=== PATIENT | female | born 1960 | race Caucasian/White ===

== ENCOUNTER 2021-05-01 23:18 | Emergency (ER) | payer BC ==
[2021-05-01] MEDS ORDERED: Sodium Chloride 0.9% 1,000 ML IV SCH (23:45)
--- NOTE | 2021-05-01 23:55 | EDM.PDOC ---
ED HPI GENERAL MEDICAL PROBLEM - General Chief Complaint: General Stated Complaint: OTONIEL FELIX Time Seen by Provider: 05/01/21 23:23 Source of Information: Reports: Patient, Family () History Limitations: Reports: No Limitations - History of Present Illness INITIAL COMMENTS - FREE TEXT/NARRATIVE: Mrs. Monroe is a very pleasant 60-year-old woman who is now brought to the ED by EMS after returning home from a [employer] party, during which time, from 17:30 to 19:00, she consumed 1.5 [employer] ice teas, then went upstairs to her bathroom, where she felt generalized weakness, therefore crumpled to the bathroom floor, and was too weak to get up. She states that she is uninjured. She then vomited a total of 4-6 times. She did not take any [id number] home remedies prior to EMS arrival. EMS reportedly gave the patient 4 mg of Zofran ODT and an additional 4 mg of IV Zofran. At this time, the patient states that her nausea is much better. No prior similar symptoms, and the patient states that she is familiar with [employer]. At triage, the patient's initial BP was found to be modestly elevated at 155/96, otherwise, she was hemodynamically stable, afebrile, saturating 97% on room air. She smells strongly of alcohol, and generally appears to be intoxicated, but appears to be relatively comfortable, in no acute distress. The patient states that she has had cold-like symptoms, including sinus congestion and a cough that developed this past 04/27/2021 or 04/28/2021. Otherwise, prior to ilnnea's event, the patient denies having a recent fever, chills, sore throat, ear pain, dyspnea, chest pain, palpitations, nausea, vomiting, constipation, diarrhea, abdominal pain, urinary symptoms, recent weight gain or weight loss, recent bloody bowel movements or black bowel movements, recent joint aches, headaches, or rashes. I reviewed the PMHx/PSHx/SocHx, which was reviewed with the patient by the RN. These patient's PCP is TOMMY Wilson. She has received 2 Pfizer COVID vaccinations, although no influenza vaccination this season. Headache Pain Score (Numeric/FACES): 3 - Related Data Allergies Allergy/AdvReac Type Severity Reaction Status Date / Time No Known Allergies Allergy Verified 05/01/21 23:39 Home Meds: Home Meds Hydroxychloroquine Sulfate 200 mg PO BID 05/01/21 [History] Meloxicam 7.5 mg PO DAILY 05/01/21 [History] Metoprolol Succinate 50 mg PO DAILY 05/01/21 [History] predniSONE [Prednisone] 5 mg PO DAILY 05/01/21 [History] Past Medical History HEENT History: Reports: Impaired Vision Cardiovascular History: Reports: Hypertension Musculoskeletal History: Reports: Fracture, Osteoarthritis - Infectious Disease History Infectious Disease History: Reports: Novel Coronavirus (dx'd 07/29/2020) - Past Surgical History GI Surgical History: Reports: Colonoscopy Social & Family History - Tobacco Use Tobacco Use Status *Q: Never Tobacco User - Caffeine Use Caffeine Use: Reports: Coffee - Recreational Drug Use Recreational Drug Use: No ED ROS GENERAL - Review of Systems Review Of Systems: Comprehensive ROS is negative, except as noted in HPI. ED EXAM, GENERAL - Physical Exam Exam: See Below Exam Limited By: No Limitations General Appearance: Alert, WD/WN, No Apparent Distress, Other (Strong smell of alcohol) Eye Exam: Bilateral Eye: EOMI, Normal Inspection, PERRL Ears: Normal External Exam, Hearing Grossly Normal Nose: Normal Inspection Throat/Mouth: Normal Inspection, Normal Lips, Normal Voice, No Airway Compromise Head: Atraumatic, Normocephalic Neck: Normal Inspection, Full Range of Motion Respiratory/Chest: No Respiratory Distress, Lungs Clear, Normal Breath Sounds, No Accessory Muscle Use. No: Decreased Breath Sounds, Crackles, Rhonchi, Wheezing, Prolonged Expiration Cardiovascular: Normal Peripheral Pulses, Regular Rate, Rhythm, No Edema, No Gallop, No JVD, No Murmur, No Rub Peripheral Pulses: 3+: Radial (L), Radial (R) GI/Abdominal: Normal Bowel Sounds, Soft, Non-Tender, No Organomegaly, No Distention, No Abnormal Bruit, No Mass Back Exam: Normal Inspection, Full Range of Motion, NT Extremities: Normal Inspection, Normal Range of Motion, No Pedal Edema, Normal Capillary Refill Neurological: Alert, Oriented, CN II-XII Intact, No Motor/Sensory Deficits, Other (Somewhat slurred speech, consistent with alcohol intoxication) Psychiatric: Normal Affect Skin Exam: Warm, Dry, Intact, Normal Color, No Rash #1 Interpretation EKG Date: 05/02/21 Time: 00:00 Rhythm: NSR Rate (Beats/Min): 90 [place]: Normal P-Wave: Present QRS: Normal ST-T: Normal QT: Prolonged (QTc 522 ms) Comparison: NA - No Prior EKG Course - Vital Signs Last Recorded V/S: Last Vital Signs Temp 35.8 C L 05/01/21 23:30 Pulse 93 05/01/21 23:30 Resp 20 05/01/21 23:30 BP 155/96 H 05/01/21 23:30 Pulse Ox 97 05/01/21 23:30 Orthostatic Blood Pressure [ 132/84 Standing] Orthostatic Blood Pressure [ 130/77 Supine] - Orders/Labs/Meds Orders: Active Orders 24 hr Category Date Time Status Orthostatic Vital Signs [RC] STAT Care 05/01/21 23:50 Active Chest 1V Frontal [CR] Stat Exams 05/01/21 23:50 Taken Sodium Chloride 0.9% [Normal Saline] 1,000 ml Med 05/01/21 23:45 Active IV ASDIRECTED Medication Orders Sodium Chloride (Normal Saline) 1,000 mls @ 150 mls/hr IV ASDIRECTED ROCHELLE Last Admin: 05/02/21 00:13 Dose: 150 mls/hr Documented by: SHERRILL Labs: Laboratory Tests 05/01/21 05/01/21 05/02/21 Range/Units 23:33 23:33 00:15 WBC 6.01 (3.98-10.04) K/mm3 RBC 4.27 (3.98-5.22) M/mm3 Hgb 13.7 (11.2-15.7) gm/dl Hct 40.8 (34.1-44.9) % MCV 95.6 H (79.4-94.8) fl MCH 32.1 (25.6-32.2) pg MCHC 33.6 (32.2-35.5) g/dl RDW Std Deviation 43.3 (36.4-46.3) fL Plt Count 186 (182-369) K/mm3 MPV 10.7 (9.4-12.3) fl Neut % (Auto) 52.5 (34.0-71.1) % Lymph % (Auto) 29.5 (19.3-51.7) % Rab[place] % (Auto) 14.3 H (4.7-12.5) % Eos % (Auto) 1.8 (0.7-5.8) Baso % (Auto) 1.2 (0.1-1.2) % Neut # (Auto) 3.16 (1.56-6.13) K/mm3 Lymph # (Auto) 1.77 (1.18-3.74) K/mm3 Rab[place] # (Auto) 0.86 H (0.24-0.36) K/mm3 Eos # (Auto) 0.11 (0.04-0.36) K/mm3 Baso # (Auto) 0.07 (0.01-0.08) K/mm3 Sodium 143 (136-145) mEq/L Potassium 4.3 (3.5-5.1) mEq/L Chloride 105 (98-107) mEq/L Carbon Dioxide 26 (21-32) mEq/L Anion Gap 16.3 H (5-15) BUN 20 H (7-18) mg/dL Creatinine 1.0 (0.55-1.02) mg/dL Est Cr Clr Drug Dosing 46.27 mL/min Estimated GFR (MDRD) 57 (>60) mL/min BUN/Creatinine Ratio 20.0 H (14-18) Glucose 126 H (70-99) mg/dL Calcium 8.9 (8.5-10.1) mg/dL Magnesium 1.7 L (1.8-2.4) mg/dL Troponin I < 0.017 (0.00-0.056) ng/mL Urine Opiates Screen (CAHMKZ=218) Ur Buprenorphine Scrn (CUTOFF=10) Ur Oxycodone Screen (GAZ5XI=241) Urine Methadone Screen (KGVJXU=863) Ur Propoxyphene Screen (HLJYXO=675) Ur Barbiturates Screen (IGPKYI=885) Ur Tricyclics Screen (RYCDRC=012) Ur Phencyclidine Scrn (CUTOFF=25) Ur Amphetamine Screen (ZPQFTQ=426) U Methamphetamines Scrn (ESXRWR=652) U Benzodiazepines Scrn (GMFRXQ=991) U Cocaine Metab Screen (JFIPIO=103) U Marijuana (THC) Screen (CUTOFF=50) Ethyl Alcohol 0.22 (0.00) gm% Influenza Type A RNA Negative (NEGATIVE) Influenza Type B RNA Negative (NEGATIVE) SARS-CoV-2 RNA (MICKIE) Negative (NEGATIVE) 05/02/21 Range/Units 01:25 WBC (3.98-10.04) K/mm3 RBC (3.98-5.22) M/mm3 Hgb (11.2-15.7) gm/dl Hct (34.1-44.9) % MCV (79.4-94.8) fl MCH (25.6-32.2) pg MCHC (32.2-35.5) g/dl RDW Std Deviation (36.4-46.3) fL Plt Count (182-369) K/mm3 MPV (9.4-12.3) fl Neut % (Auto) (34.0-71.1) % Lymph % (Auto) (19.3-51.7) % [place] % (Auto) (4.7-12.5) % Eos % (Auto) (0.7-5.8) Baso % (Auto) (0.1-1.2) % Neut # (Auto) (1.56-6.13) K/mm3 Lymph # (Auto) (1.18-3.74) K/mm3 [place] # (Auto) (0.24-0.36) K/mm3 Eos # (Auto) (0.04-0.36) K/mm3 Baso # (Auto) (0.01-0.08) K/mm3 Sodium (136-145) mEq/L Potassium (3.5-5.1) mEq/L Chloride (98-107) mEq/L Carbon Dioxide (21-32) mEq/L Anion Gap (5-15) BUN (7-18) mg/dL Creatinine (0.55-1.02) mg/dL Est Cr Clr Drug Dosing mL/min Estimated GFR (MDRD) (>60) mL/min BUN/Creatinine Ratio (14-18) Glucose (70-99) mg/dL Calcium (8.5-10.1) mg/dL Magnesium (1.8-2.4) mg/dL Troponin I (0.00-0.056) ng/mL Urine Opiates Screen Negative (PMJWLI=130) Ur Buprenorphine Scrn Negative (CUTOFF=10) Ur Oxycodone Screen Negative (KCK0WA=121) Urine Methadone Screen Negative (WMAHKD=639) Ur Propoxyphene Screen Negative (XCTMVG=358) Ur Barbiturates Screen Negative (TXKHPW=547) Ur Tricyclics Screen Negative (ZQJQUN=708) Ur Phencyclidine Scrn Negative (CUTOFF=25) Ur Amphetamine Screen Negative (ZDBWMC=979) U Methamphetamines Scrn Negative (IERYLT=326) U Benzodiazepines Scrn Negative (FFQDAX=929) U Cocaine Metab Screen Negative (ZCYZEU=279) U Marijuana (THC) Screen Negative (CUTOFF=50) Ethyl Alcohol (0.00) gm% Influenza Type A RNA (NEGATIVE) Influenza Type B RNA (NEGATIVE) SARS-CoV-2 RNA (MICKIE) (NEGATIVE) Meds: Medications Generic Name Dose Route Start Last Admin Trade Name Freq PRN Reason Stop Dose Admin Sodium Chloride 1,000 mls @ 150 mls/hr 05/01/21 23:45 05/02/21 00:13 Normal Saline IV 150 mls/hr ASDIRECTED [facility] Administration - Re-Assessments/Exams Free Text/Narrative Re-Assessment/Exam: 05/01/21 23:53 I suspect that we are dealing with nothing more than alcohol intoxication, however, I have ordered a work-up that includes orthostatics, several blood tests, a urine drug screen, a swab for the SARS-CoV-2 virus, a portable chest x- ray, and an ECG. In the meantime, the patient will be given IV fluid. 05/02/21 00:58 The patient is not orthostatic. Portable chest radiograph appears to be grossly normal. The cardiac silhouette is within normal limits. No pulmonary vascular congestion. No pleural effusions seen on this AP view. No focal infiltrate. No pneumothorax. Formal read per the Radiologist pending. The patient's CBC is unremarkable. Her BMP is remarkable for BUN slightly elevated at 20, with a Cr within normal limits at 1.0, and slight hyperglycemia of 126, with the remainder of her BMP being unremarkable. Her magnesium level is slightly depressed at 1.7. Her troponin level is undetectably low. Her EtOH level is significantly elevated at 0.22. Results of the patient's a swab for the SARS-CoV-2 virus and influenza A + B viruses is still pending. The patient has not yet provided a urine sample for a urine drug screen. 05/02/21 01:06 The patient's a swab for the SARS-CoV-2 virus and influenza A + B viruses is negative for all. 05/02/21 01:49 The patient's urine drug screen is completely negative. 05/02/21 02:05 Test results discussed with the patient and her . As above, the patient's symptoms appear to be due to alcohol intoxication. She states that she feels well enough to go home. Departure - Departure Time of Disposition: 02:05 Disposition: Home, Self-Care 01 Condition: Good Clinical Impression: Alcohol intoxication - Discharge Information *PRESCRIPTION DRUG MONITORING PROGRAM REVIEWED*: Not Applicable *COPY OF PRESCRIPTION DRUG MONITORING REPORT IN PATIENT EMANUEL: Not Applicable Referrals: Kaya Pérez [Ordering Only Provider] - Forms: ED Department Discharge Additional Instructions: You were seen in the emergency room after becoming generally weak and vomiting after drinking at a [employer] party last night. Work-up in the ER included positional blood pressure checks, numerous blood tests, a urine drug screen, a swab for the SARS-CoV-2 virus and influenza A + B viruses, a chest x-ray, and an ECG. Your work-up found your alcohol level to be significantly elevated at 0.22. For reference, that is almost 3 times the upper legal limit for driving. The remainder of your work-up was unremarkable. We recommend you stay adequately hydrated and get some rest. If any other problems, please do not hesitate to return to the ER. Sepsis Event Note (ED) - Evaluation Sepsis Screening Result: No Definite Risk - Focused Exam Vital Signs: Vital Signs Temp Pulse Resp BP Pulse Ox 05/01/21 23:30 35.8 C L 93 20 155/96 H 97 - My Orders Last 24 Hours: My Active Orders 05/01/21 23:45 Sodium Chloride 0.9% [Normal Saline] 1,000 ml IV ASDIRECTED 05/01/21 23:50 Orthostatic Vital Signs [RC] STAT Chest 1V Frontal [CR] Stat - Assessment/Plan Last 24 Hours: My Active Orders 05/01/21 23:45 Sodium Chloride 0.9% [Normal Saline] 1,000 ml IV ASDIRECTED 05/01/21 23:50 Orthostatic Vital Signs [RC] STAT Chest 1V Frontal [CR] Stat
[2021-05-02 01:02] LABS: CORONAVIRUS COVID-19 NAA NEGATIVE (NEGATIVE)
--- NOTE | 2021-05-03 09:11 | CR ---
EXAM: CHEST SINGLE VIEW PORTABLE LOCATION: [facility] DATE/TIME: 05/02/2021 12:40 AM INDICATION: Cough. COMPARISON: None. FINDINGS: A small region of apparent patchy opacities in the right infrahilar region. The lungs are otherwise clear. Normal size cardiac silhouette. IMPRESSION: 1. A small region of apparent patchy opacities in the right infrahilar region that could represent pneumonia or atelectasis or represent normal pulmonary vasculature. 2. No other findings suspicious for active cardiopulmonary disease. SIGNED BY: Rohan Bonner MD 05/02/2021 1:50 AM LUIS ANGEL
== END 2021-05-02 02:16 | disposition home or self-care (01) ==
LOC: JD.ED 23:18
DX: F10.129 Alcohol abuse with intoxication, unspecified (principal); I10 Essential (primary) hypertension; Z86.73 Personal history of transient ischemic attack (TIA), and cerebral infarction without residual deficits; Z20.822 Contact with and (suspected) exposure to COVID-19; Y90.5 Blood alcohol level of 100-119 mg/100 ml
CPT/HCPCS: 0240U; 36415; 71045; 80048; 80306; 80307; 83735; 84484; 85025; 93005; 99285; J7030